=== PATIENT | male | born 1945 | race Caucasian/White ===

== ENCOUNTER 2017-10-27 09:47 | Emergency (ER) | payer BC, SELFPAY ==
[2017-10-27] VITALS (8 sets, daily range): BP systolic 113–151; BP diastolic 65–88; PULSE 74–90; RESP 13–20; TEMP 36.7; O2SAT 94–100; BMI 32.8
--- NOTE | 2017-10-27 10:06 | DI.RAD.S_ITS ---
PROCEDURE: XR CHEST 1V INDICATIONS: Chest pain TECHNIQUE: One view of the chest was acquired. COMPARISON: [facility], , CHEST 1 VIEW, 02/26/2008, 9:01. FINDINGS: Surgical changes and devices: None. Lungs and pleura: No pleural effusions or pneumothorax. Lungs are clear. Mediastinum: Mediastinal contours appear normal. Heart size is normal. Bones and chest wall: No suspicious bony lesions. Overlying soft tissues appear unremarkable. IMPRESSION: Negative chest. No acute cardiopulmonary process is evident. Dictated by: Manolo Mello M.D. on 10/27/2017 at 9:52 Approved by: Manolo Mello M.D. on 10/27/2017 at 9:54
--- NOTE | 2017-10-27 10:08 | ED.CHESTPAIN ---
HPI - Chest Pain General Chief Complaint: Chest Pain Stated Complaint: dull aching in chest Time Seen by Provider: 10/27/17 10:07 Source: patient Mode of arrival: ambulatory History of Present Illness HPI narrative: 72-year-old male here for evaluation of retrosternal chest pressure. Patient states that he woke this morning at approximately 6 o'clock and the symptoms that brought him to the emergency department today started somewhere between 6 and 630 this morning. He states that the feel very similar to the symptoms he had on Wednesday of last week which then eventually led to when he stated was a diagnosis of a ???heart attack??? patient was seen at [facility] Wednesday of last week where he reported that he had ???elevated enzymes ???he was sent to [facility] where he had cardiac catheterization and was told that he needed a ???bypass graft ???he states that at some point after that he was transferred to [facility] where he underwent a cardiac catheterization on Wednesday ( 2 days ago) where he had 2 stents placed he was discharged yesterday. Did take his morning medicines yesterday but not his evening medicine last night did not take any medicine this morning. Related Data Home Medications Medication Instructions Recorded Confirmed aspirin 81 mg PO DAILY #0 02/26/08 10/27/17 amlodipine 5 mg PO QPM 10/27/17 10/27/17 atorvastatin 80 mg PO QPM 10/27/17 10/27/17 cholecalciferol (vitamin D3) 1,000 unit PO DAILY 10/27/17 10/27/17 [Vitamin D3] clopidogrel 75 mg PO DAILY 10/27/17 10/27/17 docusate sodium 100 mg PO BID PRN 10/27/17 10/27/17 famotidine 20 mg PO DAILY 10/27/17 10/27/17 fenofibrate 160 mg PO DAILY 10/27/17 10/27/17 losartan 50 mg PO DAILY 10/27/17 10/27/17 metformin 1,000 mg PO QPM 10/27/17 10/27/17 metoprolol succinate 75 mg PO DAILY 10/27/17 10/27/17 omega 1-urg-wor-fish oil [Fish Oil] 1 cap PO QPM 10/27/17 10/27/17 phenazopyridine 200 mg PO TID PRN 10/27/17 10/27/17 ranitidine HCl 150 mg PO BEDTIME 10/27/17 10/27/17 tamsulosin 0.4 mg PO DAILY 10/27/17 10/27/17 vitamin B complex 1 cap PO DAILY 10/27/17 10/27/17 Allergies Allergy/AdvReac Type Severity Reaction Status Date / Time diphenhydramine Allergy Mild Rash Verified 10/27/17 10:02 [From Benadryl] penicillin G Allergy Mild Rash Verified 10/27/17 10:02 prednisone Allergy Unknown Verified 10/27/17 10:02 lisinopril AdvReac Severe Cough Verified 10/27/17 10:02 Review of Systems Constitutional Denies chills, Denies fever(s), Denies lethargy and Denies weakness Cardiovascular Reports chest pain (Pressure), Reports chest pain at rest, Denies chest pain with activity, Denies diaphoresis, Denies rapid heart rate, Denies pedal edema, Denies edema, Denies irregular heart rhythm, Denies leg edema, Denies lightheadedness, Denies radiating jaw, neck or arm pain, Denies palpitations, Denies dyspnea and Denies orthopnea Respiratory Denies cough and Denies dyspnea Gastrointestinal Gastrointestinal: Denies abdominal pain, Denies change in bowel habits, Denies diarrhea, Denies nausea and Denies vomiting Genitourinary Denies hematuria, Denies flank pain, Denies urinary incontinence and Denies urinary urgency Musculoskeletal Denies back pain, Denies muscle weakness, Denies numbness and Denies tingling Integumentary/Breasts Denies pruritus, Denies erythema, Denies rash and Denies wounds Neurologic Denies numbness, Denies tingling and Denies weakness Endocrine Denies palpitations Hematologic/Lymphatic Denies easy bruising [facility] Medical History Diabetes (Acute) High cholesterol (Acute) Myocardial infarct (Acute) Surgical History Stented coronary artery (Acute) Exam Const General: cooperative and well developed Nutritional Appearance: well nourished Orientation: alert, awake, oriented x3 and not confused Resp Effort & Inspection: normal respiratory effort, able to speak in complete sentences, no respiratory distress and no use of accessory muscles Auscultation: clear to auscultation bilaterally, no rales, no rhonchi and no wheezes Cardio Rate: regular rate Rhythm: regular rhythm Heart Sounds: no click, no gallops, no murmurs and no rubs Pulses: normal peripheral pulses GI Inspection: non-distended Palpation: soft, no hepatosplenomegaly, No guarding, No pulsatile mass and No tender Auscultation: normal bowel sounds Skin General: no rashes or lesions noted, No jaundice and No petechiae Neuro General: alert, oriented x3, gait normal and no focal motor deficits Cranial Nerves: CN's II-XI intact bilaterally Speech: speech normal Motor: strength 5/5 throughout Sensory Exam: no sensory deficits noted Extrem General: full ROM, no clubbing, cyanosis or edema, no pedal edema and no calf tenderness Psych Appearance: well kempt Mental Status: mental status grossly normal Attitude: cooperative Thought Content: normal Judgment: judgment good Course Orders Ordered: ED Orders 10/27/17 09:58 Complete Blood Count AUTO DIFF Stat Comprehensive Metabolic Panel Stat Lipase Stat Partial Thromboplastin Time Stat Prothrombin Time INR Stat Troponin with CK Cardiac Panel Stat 10/27/17 10:06 XR chest 1V Stat Heparin Sodium/Dextrose (Heparin Drip) 25,000 unit in 500 mls @ 22.824 mls/hr IV CONT COLLINS; Protocol Last Admin: 10/27/17 11:24 Dose: 12 units/kg/hr, 22.824 mls/hr Discontinued Medications Aspirin (Aspirin Chew) 324 mg PO NOW ONE Stop: 10/27/17 10:59 Last Admin: 10/27/17 11:11 Dose: 324 mg Clopidogrel Bisulfate (Plavix) 150 mg PO NOW ONE Stop: 10/27/17 11:17 Last Admin: 10/27/17 11:22 Dose: 150 mg Heparin Sodium (Porcine) (Heparin) 5,000 unit IV NOW ONE Stop: 10/27/17 11:17 Last Admin: 10/27/17 11:22 Dose: 5,000 unit Nitroglycerin (Nitro-Bid) 1 inch TOP NOW ONE Stop: 10/27/17 10:59 Last Admin: 10/27/17 11:11 Dose: 1 inch Last Vital Signs Temp 98.1 F 10/27/17 09:56 Pulse 74 10/27/17 11:11 Resp 19 10/27/17 11:00 BP 137/88 H 10/27/17 11:11 Pulse Ox 94 10/27/17 11:00 MDM - Chest Pain Lab Data Attestation: I reviewed the patient's lab results. Result diagrams: 10/27/17 09:58 10/27/17 09:58 Lab Results 10/27/17 10/27/17 10/27/17 Range/Units 09:58 09:58 09:58 WBC 6.9 (4.5-11.0) X10^3/uL RBC 4.76 (4.5-5.9) X10^6/uL Hgb 15.0 (13.5-17.5) g/dL Hct 42.5 (41-53) % MCV 89.2 (80-100) fL MCH 31.4 (26-34) PG MCHC 35.2 (30-36) % RDW 13.7 (11.6-14.8) % Plt Count 265 (150-400) X10^3/uL Neut % (Auto) 60.7 (50-75) % Lymph % (Auto) 24.2 L (25-40) % [place] % (Auto) 12.8 (3-14) % Eos % (Auto) 1.6 L (2-4) % Baso % (Auto) 0.7 (0-2) % Neut # (Auto) 4200 (4429-0198) /uL PT 12.5 (10.1-12.7) SECONDS INR 1.2 (0.9-1.3) APTT 35 (26.4-36.2) SECONDS Sodium 141 (137-145) mmol/L Potassium 4.3 (3.4-5.1) mmol/L Chloride 104.0 (98-107) mmol/L Carbon Dioxide 25.0 (22-32) mmol/L BUN 27.0 H (9-20) mg/dL Creatinine 1.10 (0.66-1.25) mg/dL Estimated GFR > 60.0 (>60) mL/min BUN/Creatinine Ratio 24.5 H (6-22) Glucose 137 H (80-110) mg/dL Calcium 9.8 (8.4-10.2) mg/dL Total Bilirubin 0.7 (0.2-1.3) mg/dL AST 29 (17-59) IU/L ALT 37 (21-72) IU/L Alkaline Phosphatase 45 (38-126) U/L Total Creatine Kinase 79 (55-170) U/L Troponin I 0.039 H (0.01-0.034) ng/mL Total Protein 7.7 (6.3-8.2) g/dL Albumin 4.4 (3.5-5.0) g/dL Globulin 3.3 (1.7-4.1) g/dL Albumin/Globulin Ratio 1.3 (1.0-2.8) Lipase 156 (23-300) U/L Imaging Data Chest x-ray: Radiologist's impression: PROCEDURE: XR CHEST 1V INDICATIONS: Chest pain TECHNIQUE: One view of the chest was acquired. COMPARISON: [facility], CHEST 1 VIEW, 02/26/2008, 9:01. FINDINGS: Surgical changes and devices: None. Lungs and pleura: No pleural effusions or pneumothorax. Lungs are clear. Mediastinum: Mediastinal contours appear normal. Heart size is normal. Bones and chest wall: No suspicious bony lesions. Overlying soft tissues appear unremarkable. IMPRESSION: Negative chest. No acute cardiopulmonary process is evident. Dictated by: Manolo Mello M.D. on 10/27/2017 at 9:52 ECG Data Attestation: I personally reviewed and interpreted this ECG as follows: Prior ECG tracings: not available for review Interpretation: EKG dated 27 Oct 2017 time 0957 hr Sinus rhythm Normal axis Right bundle branch block [address]-elevation in lead 1 No reciprocal changes Nonspecific ST T wave changes MDM Narrative Medical decision making narrative: Patient with a recent diagnosis per his report of a ???heart attack ???had 2 stents placed 2 days ago. Was discharged from the hospital yesterday. Did not take his Plavix yesterday evening or this morning. No ST elevation on his EKG. Does have a slightly elevated troponin however I have no prior labs to compare this to. Does have symptoms he describes are very much like his presenting symptoms 1 week ago. Patient was given an aspirin here in the emergency department. Was given Plavix. Was started on heparin drip. Discussed the case with Dr. Farias at [facility] with the cardiology service. It appears throw discussion over the phone that his EKG here in the emergency department is very similar to his prior EKGs. After this discussion with Cardiology will transfer the patient to [facility] for continued evaluation. Informed patient of the decision. He expressed understanding and agreement with plan. Patient is stable for transport Discharge Plan Departure Patient Disposition: [facility] Clinical Impression: ACS (acute coronary syndrome) Prescriptions: No Action aspirin 81 mg Tablet,Chewable 81 mg PO DAILY Qty: 0 RF: 0 losartan 50 mg tablet 50 mg PO DAILY RF: 0 metformin 500 mg tablet 1,000 mg PO QPM RF: 0 atorvastatin 80 mg Tablet 80 mg PO QPM RF: 0 phenazopyridine 200 mg Tablet 200 mg PO TID PRN (Reason: painful urination) RF: 0 docusate sodium 50 mg Capsule 100 mg PO BID PRN (Reason: Constipation) RF: 0 clopidogrel 75 mg tablet 75 mg PO DAILY RF: 0 amlodipine 5 mg Tablet 5 mg PO QPM RF: 0 famotidine 20 mg Tablet 20 mg PO DAILY RF: 0 tamsulosin 0.4 mg Capsule,Extended Release 24hr 0.4 mg PO DAILY RF: 0 metoprolol succinate 25 mg tablet extended release 24 hr 75 mg PO DAILY RF: 0 fenofibrate 160 mg tablet 160 mg PO DAILY RF: 0 omega 1-kfm-rit-fish oil [Fish Oil] 360-1,200 mg Capsule,Delayed Release(Dr/Ec) 1 cap PO QPM RF: 0 ranitidine HCl 150 mg Tablet 150 mg PO BEDTIME RF: 0 vitamin B complex Capsule 1 cap PO DAILY RF: 0 cholecalciferol (vitamin D3) [Vitamin D3] 1,000 unit Capsule 1,000 unit PO DAILY RF: 0
[2017-10-27 10:17] LABS: INR 1.2 (0.9-1.3); Prothrombin Time 12.5 SECONDS (10.1-12.7)
[2017-10-27 10:18] LABS: Add Manual Diff / Slide Review NO; Basophils Percent Auto 0.7 % (0-2); Eosinophils Percent Auto 1.6 % (2-4); Hematocrit 42.5 % (41-53); Lymphocytes Percent Auto 24.2 % (25-40); Mean Corpuscular HGB Conc 35.2 % (30-36); Mean Corpuscular Hemoglobin 31.4 PG (26-34); Mean Corpuscular Volume 89.2 fL (80-100); Monocytes Percent Auto 12.8 % (3-14); Neutrophils Absolute Auto 4200 /uL (3000-5900); Neutrophils Percent Auto 60.7 % (50-75); Platelet Count 265 X10^3/uL (150-400); Red Blood Cell Count 4.76 X10^6/uL (4.5-5.9); Red Cell Distribution Width 13.7 % (11.6-14.8); White Blood Cell Count 6.9 X10^3/uL (4.5-11.0)
[2017-10-27 10:20] LABS: PTT Partial Thromboplastin Tim 35 SECONDS (26.4-36.2)
[2017-10-27 10:25] LABS: Alanine Aminotransferase 37 IU/L (21-72); Albumin 4.4 g/dL (3.5-5.0); Albumin Globulin Ratio 1.3 (1.0-2.8); Alkaline Phosphatase 45 U/L (38-126); Aspartate Aminotransferase 29 IU/L (17-59); BUN Creatinine Ratio 24.5 (6-22); Bilirubin Total 0.7 mg/dL (0.2-1.3); Calcium 9.8 mg/dL (8.4-10.2); Creatine Kinase 79 U/L (55-170); Estimated Glomerular Filt Rate > 60.0 mL/min (>60); Globulin 3.3 g/dL (1.7-4.1); Glucose 137 mg/dL (80-110); HEMOLYSIS < 15 (0-50); Lipase 156 U/L (23-300); Potassium 4.3 mmol/L (3.4-5.1); Sodium 141 mmol/L (137-145); Total Protein 7.7 g/dL (6.3-8.2)
[2017-10-27 10:35] LABS: Troponin I 0.039 ng/mL (0.01-0.034)
[2017-10-27] MEDS: NITROGLYCERIN OINT 1 INCH/GM OINT...G. TOP (11:11)
[2017-10-27] MEDS: ASPIRIN 81 MG TAB 324 MG PO (11:11)
[2017-10-27] MEDS: CLOPIDOGREL 75 MG TABLET 150 MG PO (11:22)
[2017-10-27] MEDS: HEPARIN 5,000 UNIT/ML VIAL 5000 UNIT IV (11:22)
[2017-10-27] MEDS: HEPARIN DRIP 25,000 UNIT/500 ML IV.SOLN 22.824 UNIT IV (11:24)
[2017-10-27] MEDS: ACETAMINOPHEN 325 MG TABLET 650 MG PO (13:21)
== END 2017-10-27 13:41 | disposition short-term general hospital (02) ==
PROVIDERS: Emergency Provider Emergency Medicine
DX: I24.9 Acute ischemic heart disease, unspecified (principal)
CPT/HCPCS: 71045; 80053; 82550; 82553; 83690; 84484; 85025; 85610; 85730; 93005; 93041; 96365; 96366; 96375; 99285; J1644

== ENCOUNTER 2018-07-15 21:40 | Emergency (ER) | payer BC, SELFPAY ==
[2018-07-15 21:43] VITALS: BP 146/69; PULSE 75; RESP 16; TEMP 36.8; O2SAT 95; BMI 31.3
--- NOTE | 2018-07-15 21:54 | DI.RAD.S_ITS ---
PROCEDURE: XR CHEST 1V INDICATIONS: chest pain TECHNIQUE: One view of the chest was acquired. COMPARISON: None. FINDINGS: Surgical changes and devices: None. Lungs and pleura: Lungs are clear. No pleural effusions or pneumothorax. Mediastinum: Mediastinal contours appear normal. Heart size is normal. Bones and chest wall: No suspicious bony lesions. Overlying soft tissues appear unremarkable. IMPRESSION: No acute process. Dictated by: Farideh Rios M.D. on 07/16/2018 at 9:21 Approved by: Farideh Rios M.D. on 07/16/2018 at 9:21
[2018-07-15 22:30] VITALS: BP 131/80; PULSE 72; RESP 18; O2SAT 96
[2018-07-15 22:33] LABS: Add Manual Diff / Slide Review NO; Basophils Absolute Auto 0 /uL (0-100); Basophils Percent Auto 0.5 % (0-2); Eosinophils Absolute Auto 100 /uL (0-450); Eosinophils Percent Auto 2.8 % (2-4); Hematocrit 41.5 % (41-53); Hemoglobin 14.2 g/dL (13.5-17.5); Lymphocytes Absolute Auto 1300 /uL (1100-4500); Lymphocytes Percent Auto 25.5 % (25-40); Mean Corpuscular HGB Conc 34.2 % (30-36); Mean Corpuscular Hemoglobin 31.5 PG (26-34); Monocytes Absolute Auto 700 /uL (0-900); Monocytes Percent Auto 12.9 % (3-14); Neutrophils Absolute Auto 3000 /uL (1500-7000); Neutrophils Percent Auto 58.3 % (50-75); Platelet Count 212 X10^3/uL (150-400); Red Blood Cell Count 4.51 X10^6/uL (4.5-5.9); Red Cell Distribution Width 13.6 % (11.6-14.8); White Blood Cell Count 5.2 X10^3/uL (4.5-11.0)
[2018-07-15 22:34] LABS: Prothrombin Time 12.1 SECONDS (10.1-12.7)
[2018-07-15 22:36] LABS: PTT Partial Thromboplastin Tim 32 SECONDS (26.4-36.2)
[2018-07-15 22:38] LABS: Alanine Aminotransferase 23 IU/L (21-72); Albumin 4.2 g/dL (3.5-5.0); Albumin Globulin Ratio 1.4 (1.0-2.8); Alkaline Phosphatase 37 U/L (38-126); Aspartate Aminotransferase 24 IU/L (17-59); Bilirubin Total 0.3 mg/dL (0.2-1.3); Blood Urea Nitrogen 36 mg/dL (9-20); Calcium 9.4 mg/dL (8.4-10.2); Carbon Dioxide 25 mmol/L (22-32); Chloride 107 mmol/L (98-107); Creatine Kinase 59 U/L (55-170); Estimated Glomerular Filt Rate 59.9 mL/min (>60); Glucose 134 mg/dL (80-110); HEMOLYSIS < 15 (0-50); Lipase 106 U/L (23-300); Sodium 143 mmol/L (137-145); Total Protein 7.2 g/dL (6.3-8.2)
[2018-07-15 22:54] LABS: Troponin I < 0.012 ng/mL (0.01-0.034)
--- NOTE | 2018-07-15 23:04 | ED_ITS ---
HPI - Chest Pain General Chief Complaint: Chest Pain Stated Complaint: START IN THE BACK TO CHEST PAIN Time Seen by Provider: 07/15/18 22:02 Source: patient Mode of arrival: ambulatory Limitations: no limitations History of Present Illness HPI narrative: 72-year-old male, nonsmoker with extensive medical history including hypertension, diabetes, and hyperlipidemia presents to the emergency department with a chief complaint of back pain which radiates around his chest. He is not dizzy nor weak or lightheaded. He denies any shortness of breath. His pain is sharp and aching and he states it is out side of his chest. He denies any significant cough or other. He denies any injury. His pain is worse with palpation and motion of his right arm. He denies any hemoptysis or recent long distance travel. Yesterday his noted a small tender red patch just lateral to his spine in his midthoracic region Onset (ago): day(s) Duration: constant Pain location: right chest Severity: mild Quality: aching and sharp Pain radiation: none Exacerbating factors: palpation and movement Treatments prior to arrival chest pain: none Related Data Home Medications Medication Instructions Recorded Confirmed aspirin 81 mg PO DAILY #0 02/26/08 10/27/17 amlodipine 5 mg PO QPM 10/27/17 10/27/17 atorvastatin 80 mg PO QPM 10/27/17 10/27/17 cholecalciferol (vitamin D3) 1,000 unit PO DAILY 10/27/17 10/27/17 [Vitamin D3] clopidogrel 75 mg PO DAILY 10/27/17 10/27/17 docusate sodium 100 mg PO BID PRN 10/27/17 10/27/17 famotidine 20 mg PO DAILY 10/27/17 10/27/17 fenofibrate 160 mg PO DAILY 10/27/17 10/27/17 losartan 50 mg PO DAILY 10/27/17 10/27/17 metformin 1,000 mg PO QPM 10/27/17 10/27/17 metoprolol succinate 75 mg PO DAILY 10/27/17 10/27/17 omega 9-hya-otx-fish oil [Fish Oil] 1 cap PO QPM 10/27/17 10/27/17 phenazopyridine 200 mg PO TID PRN 10/27/17 10/27/17 ranitidine HCl 150 mg PO BEDTIME 10/27/17 10/27/17 tamsulosin 0.4 mg PO DAILY 10/27/17 10/27/17 vitamin B complex 1 cap PO DAILY 10/27/17 10/27/17 Previous Rx's Medication Instructions Recorded valacyclovir 1,000 mg PO Q8H 7 Days #21 tab 07/15/18 Allergies Allergy/AdvReac Type Severity Reaction Status Date / Time diphenhydramine Allergy Mild Rash Verified 07/15/18 21:43 [From Benadryl] penicillin G Allergy Mild Rash Verified 07/15/18 21:43 prednisone Allergy Unknown Verified 07/15/18 21:43 lisinopril AdvReac Severe Cough Verified 07/15/18 21:43 Review of Systems Constitutional Denies chills, Denies fever(s), Denies lethargy and Denies weakness Eyes Denies change in vision, Denies eye discharge, Denies irritation and Denies loss of vision ENT Ears, Nose, Mouth, and Throat: Denies change in voice, Denies neck pain and Denies sore throat Cardiovascular Reports chest pain, Denies irregular heart rhythm, Denies lightheadedness, Denies palpitations, Denies dyspnea, Denies dyspnea on exertion and Denies orthopnea Respiratory Denies cough, Denies dyspnea, Denies dyspnea on exertion and Denies wheezing Gastrointestinal Gastrointestinal: Denies abdominal pain, Denies change in bowel habits, Denies diarrhea, Denies nausea and Denies vomiting Genitourinary Denies hematuria, Denies flank pain, Denies urinary incontinence and Denies urinary urgency Musculoskeletal Denies neck pain Integumentary/Breasts Denies pruritus, Reports erythema, Denies rash, Reports skin pain, Reports skin swelling and Denies wounds Neurologic Denies confusion, Denies loss of vision and Denies weakness Psychiatric Denies anxiety, Denies confusion, Denies depression, Denies homicidal ideation and Denies suicidal ideation Endocrine Denies palpitations Hematologic/Lymphatic Denies easy bruising Allergic/Immunologic Denies wheezing PFSH Medical History Diabetes (Acute) High cholesterol (Acute) Myocardial infarct (Acute) Surgical History Stented coronary artery (Acute) Social History Smoking Status: Never smoker Social History Smoking Status: Never smoker Exam Narrative Exam Narrative: GENERAL: 72-year-old male resting comfortably, reading his tablet in no obvious distress HEAD: Atraumatic. Normocephalic. No temporal or scalp tenderness. EYES: Pupils equal round and reactive. Extraocular motions intact. No scleral icterus. No injection or drainage. ENT: Nose without bleeding, purulent drainage or septal hematoma. Throat without erythema, tonsillar hypertrophy or exudate. Uvula midline. Airway patent. NECK: Trachea midline. No JVD or lymphadenopathy. Supple, nontender, no meningeal signs. CARDIOVASCULAR: Regular rate and rhythm without murmurs, gallops, or rubs. RESPIRATORY: Clear to auscultation. Breath sounds equal bilaterally. No wheezes , rales, or rhonchi. GASTROINTESTINAL: Abdomen soft, non-tender, nondistended. No hepato-splenomegaly , or palpable masses. No guarding. EXTREMITIES: No clubbing, cyanosis, or edema. No joint tenderness, effusion, or edema noted. BACK: Nontender without deformity or crepitance. No flank tenderness. NEURO: AOx3. SKIN: Tender, tingling, erythematous patch just lateral to the midline at mid Thoracics. His pain is reproducible with palpation wrapping along a single dermatome towards his chest. Light touch produces a mild almost tingling type pain. Initial Vital Signs Initial Vital Signs: Vital Signs Temperature 98.3 F 07/15/18 21:43 Pulse Rate 75 07/15/18 21:43 Respiratory Rate 16 07/15/18 21:43 Blood Pressure 146/69 H 07/15/18 21:43 Pulse Oximetry 95 07/15/18 21:43 Course Orders Ordered: ED Orders 07/15/18 21:54 XR chest 1V Stat EKG-12 Lead Stat 07/15/18 22:08 Complete Blood Count AUTO DIFF Stat Comprehensive Metabolic Panel Stat Lipase Stat Partial Thromboplastin Time Stat Prothrombin Time INR Stat Troponin & CK Cardiac Panel Stat Vital Signs - 8 hr 07/15/18 21:43 07/15/18 22:30 Temperature 98.3 F Pulse Rate 75 72 Respiratory Rate 16 18 Blood Pressure 146/69 H Blood Pressure [Left Arm] 131/80 Pulse Oximetry 95 96 MDM - Chest Pain Differential Diagnosis Likely fracture of rib, pneumothorax and stable angina Medical Records Data Attestation: I reviewed the patient's medical records. Lab Data Attestation: I reviewed the patient's lab results. Result diagrams: 07/15/18 22:08 07/15/18 22:08 Lab Results 07/15/18 07/15/18 07/15/18 Range/Units 22:08 22:08 22:08 WBC 5.2 (4.5-11.0) X10^3/uL RBC 4.51 (4.5-5.9) X10^6/uL Hgb 14.2 (13.5-17.5) g/dL Hct 41.5 (41-53) % MCV 92.0 (80-100) fL MCH 31.5 (26-34) PG MCHC 34.2 (30-36) % RDW 13.6 (11.6-14.8) % Plt Count 212 (150-400) X10^3/uL Neut % (Auto) 58.3 (50-75) % Lymph % (Auto) 25.5 (25-40) % [place] % (Auto) 12.9 (3-14) % Eos % (Auto) 2.8 (2-4) % Baso % (Auto) 0.5 (0-2) % Neut # (Auto) 3000 (1911-0218) /uL Lymph # (Auto) 1300 (5482-9272) /uL [place] # (Auto) 700 (0-900) /uL Eos # (Auto) 100 (0-450) /uL Baso # (Auto) 0 (0-100) /uL PT 12.1 (10.1-12.7) SECONDS INR 1.0 (0.9-1.3) APTT 32 D (26.4-36.2) SECONDS Sodium 143 (137-145) mmol/L Potassium 4.0 (3.4-5.1) mmol/L Chloride 107 (98-107) mmol/L Carbon Dioxide 25 (22-32) mmol/L BUN 36 H (9-20) mg/dL Creatinine 1.20 (0.66-1.25) mg/dL Estimated GFR 59.9 L (>60) mL/min BUN/Creatinine Ratio 30.0 H (6-22) Glucose 134 H (80-110) mg/dL Calcium 9.4 (8.4-10.2) mg/dL Total Bilirubin 0.3 (0.2-1.3) mg/dL AST 24 (17-59) IU/L ALT 23 (21-72) IU/L Alkaline Phosphatase 37 L (38-126) U/L Total Creatine Kinase 59 (55-170) U/L CK-MB (CK-2) TNP CK-MB (CK-2) Rel Index TNP Troponin I < 0.012 (0.01-0.034) ng/mL Total Protein 7.2 (6.3-8.2) g/dL Albumin 4.2 (3.5-5.0) g/dL Globulin 3.0 (1.7-4.1) g/dL Albumin/Globulin Ratio 1.4 (1.0-2.8) Lipase 106 (23-300) U/L Imaging Data Chest x-ray: My impression: NAP ECG Data Attestation: I personally reviewed and interpreted this ECG as follows: Prior ECG tracings: available for review Interpretation: EKG is normal sinus rhythm rate [75 ] and free of any signs of ischemia or ectopy. No ST segmental elevation or depression. No T wave inversions. Right bundle branch block MDM Narrative Medical decision making narrative: Multiple etiologies for patient's symptoms considered including: [Ischemia, thought less likely given no change in EKG or troponin after multiple days. Nonischemic type picture with reproducible, sharp pain. Pneumothorax or pneumonia considered but thought less likely given lack of significant findings on chest x-ray or consistent history. Musculoskeletal injury considered given sharp reproducible pain of the right chest wall. Shingles considered very likely given painful rash noted and distribution of pain in a single dermatome. Furthermore pain was noted prior to the presentation of the rash] Patient's symptoms improved or duration of stay with above-stated therapies. Findings and discharge diagnosis discussed with patient/family followed by verbalization of understanding Return precautions discussed with patient/family whom verbalize understanding. Discharge Plan Departure Patient Disposition: Home Clinical Impression: Shingles Discharge Date/Time: 07/15/18 23:10 Interventions: ED Discharge Assessment Last Done: 07/15/18 23:21 Instructions: Shingles Activity Restrictions/Additional Instructions: *You have been diagnosed with [ right chest wall pain, likely shingles ] *What to do: *Take medications as directed *Follow up with your primary care provider as planned, keep your appointment. Let them know you were seen in the Emergency Department and that we ask that you be seen in follow up *Return to ER if you should have any new, worsening or concerning symptoms Prescriptions: New valacyclovir 1 gram tablet 1,000 mg PO Q8H 7 Days Qty: 21 RF: 0 No Action aspirin 81 mg Tablet,Chewable 81 mg PO DAILY Qty: 0 RF: 0 losartan 50 mg tablet 50 mg PO DAILY RF: 0 metformin 500 mg tablet 1,000 mg PO QPM RF: 0 atorvastatin 80 mg Tablet 80 mg PO QPM RF: 0 phenazopyridine 200 mg Tablet 200 mg PO TID PRN (Reason: painful urination) RF: 0 docusate sodium 50 mg Capsule 100 mg PO BID PRN (Reason: Constipation) RF: 0 clopidogrel 75 mg tablet 75 mg PO DAILY RF: 0 amlodipine 5 mg Tablet 5 mg PO QPM RF: 0 famotidine 20 mg Tablet 20 mg PO DAILY RF: 0 tamsulosin 0.4 mg Capsule,Extended Release 24hr 0.4 mg PO DAILY RF: 0 metoprolol succinate 25 mg tablet extended release 24 hr 75 mg PO DAILY RF: 0 fenofibrate 160 mg tablet 160 mg PO DAILY RF: 0 omega 2-wbn-guq-fish oil [Fish Oil] 360-1,200 mg Capsule,Delayed Release(Dr/Ec ) 1 cap PO QPM RF: 0 ranitidine HCl 150 mg Tablet 150 mg PO BEDTIME RF: 0 vitamin B complex Capsule 1 cap PO DAILY RF: 0 cholecalciferol (vitamin D3) [Vitamin D3] 1,000 unit Capsule 1,000 unit PO DAILY RF: 0
--- NOTE | 2018-07-15 23:17 | PC.NURSE ---
PT states back pain x 1 week radiating to right chest today, with back pain worse than chest pain. Pt states hx of [place] with stent placed October 2017 and states does not feel similar to that episode now. Pt has red rash to back worse to right side.
== END 2018-07-15 23:10 | disposition home or self-care (01) ==
PROVIDERS: Emergency Provider Emergency Medicine
DX: B02.9 Zoster without complications (principal); R07.89 Other chest pain
CPT/HCPCS: 36591; 71045; 80053; 82550; 83690; 84484; 85025; 85610; 85730; 93005; 99283; 99285

== ENCOUNTER → 2020-10-14 15:23 | Outpatient (CLI) | payer BC, SELFPAY ==
[2020-10-14 17:46] LABS: COVID19 -Nasal RAPID Negative (Negative)
== END ==
PROVIDERS: PCP Physician Assistant Medical; Visit Provider Student in an Organized Health Care Education/Training Program
DX: Z01.812 Encounter for preprocedural laboratory examination (principal); Z20.822 Contact with and (suspected) exposure to COVID-19
CPT/HCPCS: 87635

== ENCOUNTER 2020-10-15 12:57 | Outpatient (CLI) | payer BC, SELFPAY ==
[2020-10-15] VITALS (10 sets, daily range): BP systolic 128–166; BP diastolic 62–78; PULSE 62–75; RESP 12–19; TEMP 37.1; O2SAT 93–96
--- NOTE | 2020-10-15 13:52 | DI.RAD.S_ITS ---
PROCEDURE: PAIN L/S TRANSFORAMINAL INJECT INDICATIONS: SPONDYLOSIS COMPARISON: [facility], RG, XR L-SPINE 4-6V, 02/29/2020, 12:31. FINDINGS: Fluoroscopic spot filming was performed to verify placement of a spinal needle at the L4-L5 level, as labeled on the films. Appropriate location of the needle tip was confirmed by injection of iodinated contrast. IMPRESSION: Intraprocedural examination within normal limits. Dictated by: Jensen Resendiz M.D. on 10/15/2020 at 14:54 Approved by: Jensen Resendiz M.D. on 10/15/2020 at 14:54
[2020-10-15] MEDS: fentaNYL 100 MCG/2 ML INJ 50 MCG IV (14:06)
[2020-10-15] MEDS: MIDAZOLAM 5 MG/5 ML VIAL IV (14:06)
[2020-10-15] MEDS: BUPIVACAINE 0.25% (PF) VIAL 2 ML INJ (14:11)
[2020-10-15] MEDS: BETAMETHASONE 30 MG/5 ML MDV 6 MG INJ (14:11)
[2020-10-15] MEDS: IOPAMIDOL 15 ML VIAL 3 ML INJ (14:12)
[2020-10-15] MEDS: DEXAMETHASONE 10 MG/ML VIAL 20 MG INJ (14:12)
--- NOTE | 2020-10-15 14:23 | P.PCN_ITS ---
Date/Time/Diagnoses Date of procedure: 10/15/20 Time of procedure: 14:23 Pre-procedure diagnosis: 1. FORAMINAL STENOSIS WITH LE SYMPTOMS Post-procedure diagnosis: same Procedure Notes Procedure: 1. FLUOROSCOPICALLY GUIDED CONTRAST CONTROLLED TRANSFORAMINAL EPIDURAL STEROID INJECTION - RIGHT L4/5 TFESI Indications: Carlos is referred by KORY Laboy for treatment of Foraminal Stenosis with Right LE Symptoms Physician: Jai Wilkinson Total Fluoroscopy time (seconds): 14 Total sedation minutes: 10 Complications: none Procedure in detail & Post-procedure care: FINDINGS Foraminal Nerve Root Compression secondary to disc disease and facet hypertrophy DESCRIPTION OF PROCEDURE Following review of allergy and review of potential side effects and complications, including, but not necessarily limited to, infection, allergic reaction, local tissue breakdown, stroke, temporary or permanent nerve injury, paralysis, and possible , the patient indicated that the patient understood and agreed to proceed. An informed consent document was signed by the patient, witnessed by a nurse, and placed in the patient's chart. Additionally, other treatment options including medications, modalities, and physical therapy were reviewed with the patient. After review of previous anaesthesic history and IV conscious sedation the patient was deemed safe to proceed with today?s procedure with IV conscious sedation as ASA class II designation. Safety time-out was performed to confirm patient ID, procedure to be performed and site of procedure. IV sedation was accomplished with a combination of 2mg of Versed and 50mcg of Fentanyl was administered by the RN after DO order, titrated to patient comfort during the course of the procedure while the patient remained responsive to all verbal co mmands In the prone position following sterile prep and drape of the lumbar region, the right L4/5 posterior neuroforamen was identified fluoroscopically. The skin was anesthetized via a 25-gauge 1.5-inch needle with 1% lidocaine solution. At this point, a 25-gauge 3.5-inch spinal needle was atraumatically introduced and advanced under fluoroscopic guidance through the posterior right L4/5 n euroforamen to approximately the anterior aspect of the canal. Depth was confirmed on lateral view. Following negative aspiration, injection of approximately 1.5cc of Isovue 200 under live fluoroscopy in the AP view confirmed excellent flow along the nerve root, into the epidural space without vascular or intrathecal uptake observed Radiological data, including multiple fluoroscopic views of the lumbosacral spine, reveal a spinal needle at the right L4/5 posterior neuroforamen. Subsequent views show flow of contrast material flowing superiorly and inferiorly along the nerve root confirming epidural flow. Subsequently, a test dose of 1.5 cc of 1% lidocaine solution was administered and patient was observed for two minutes for signs or symptoms of complications, including abdominal pain, shortness of breath, bilateral upper or lower extremity weakness, nausea and vomiting, prior to steroid injection. At this point, a total of 3cc or 20mg of dexamethasone and 6mg of betamethasone was injected without incident. The procedure tolerated the procedure well without signs or symptoms of complications prior to transfer to the recovery area continued monitoring without incident. The patient was then transferred to the recovery area where they were observed for an appropriate time after the injection. The patient reported a VAS score of 7 prior to the procedure and a post-p rocedure VAS of 0. POST OP INSTRUCTIONS The patient was provided a Pain Log to continue to record their response to the target-specific procedure prior to follow-up visit with their referring physician. Additionally, specific post-injection care instructions and a contact number to our office were provided if concerns arise regarding possible complications associated with the procedure are suspected.
--- NOTE | 2020-10-15 16:41 | PC.NURSE ---
Pt arrived very drowsy from procedure room. Attempted to stand patient at 1430/1445/1510- each time pt was bertin to stand on his own, march in step but stating he was very dizzy and felt light headed. Difficult for patient to remain awake. Stated he is this drowsy each afternoon at this time due to a medication he is on. The thing that is not normal is to have dizziness and feel light headed Pt occassionally pale and diaphoretic. No one at home this evening to monitor patient. Encourage him to just relax and take his time here for recovery. Pt easily falling asleep. Improved balance and ability to march in place by 1530. Pt awake more, holding full conversations. Dr Wilkinson at chair to assess at 1538- ok'd to DC. Pt's neetu Sanchez agreed verbally via phone to help pt get into home nad chair safely once home. DC/d at 1540
== END 2020-10-15 15:40 | disposition home or self-care (01) ==
LOC: RAD 13:06
PROVIDERS: PCP Physician Assistant Medical; Referring Provider Physical Medicine & Rehabilitation; Visit Provider Physical Medicine & Rehabilitation
DX: M48.061 Spinal stenosis, lumbar region without neurogenic claudication (principal); M51.16 Intervertebral disc disorders with radiculopathy, lumbar region
CPT/HCPCS: 64483; 99152; J0702; J1100; J2250; J3010

== ENCOUNTER → 2020-12-09 13:40 | Outpatient (CLI) | payer BC, SELFPAY ==
--- NOTE | 2020-12-09 14:24 | DI.RAD.S_ITS ---
PROCEDURE: XR HIP W PEL IF DONE [place] MIN 4V INDICATIONS: right hip djd TECHNIQUE: AP pelvis with lateral view(s) of the bilateral hip(s). COMPARISON: None. FINDINGS: Bones: No fractures or dislocations. Moderate right worse than left bilateral hip joint osteoarthritic changes are seen. No evidence of avascular necrosis of femoral head. Pelvic ring appears intact. No suspicious bony lesions. Soft tissues: The visualized bowel gas pattern is normal. No suspicious soft tissue calcifications. IMPRESSION: Moderate right worse than left bilateral hip joint osteoarthritis. No fracture or dislocation. No evidence of avascular necrosis. Dictated by: Hermelindo Farley M.D. on 12/09/2020 at 15:00 Approved by: Hermelindo Farley M.D. on 12/09/2020 at 15:00
== END ==
PROVIDERS: PCP Physician Assistant Medical; Referring Provider Physical Medicine & Rehabilitation; Visit Provider Physical Medicine & Rehabilitation
DX: M16.0 Bilateral primary osteoarthritis of hip (principal)
CPT/HCPCS: 73522

== ENCOUNTER → 2021-02-05 10:46 | Outpatient (CLI) | payer BC, SELFPAY ==
--- NOTE | 2021-02-05 10:48 | DI.RAD.S_ITS ---
PROCEDURE: XR THORACIC SPINE 3V INDICATIONS: progressive neck and thoracic pain TECHNIQUE: 3 views of the thoracic spine were acquired. COMPARISON: [facility], CR, XR CERVICAL SPINE 4V OR 5V, 02/05/2021, 10:44. [facility], CR, XR CHEST 1V, 07/15/2018, 21:58. [facility] [place], [place], XR LUMBAR SPINE 2 OR 3 VIEWS, 06/08/2019, 11:48. FINDINGS: Bones: No fractures or dislocations. No suspicious bony lesions. 12 pairs of ribs are noted, and appear intact where visualized. Soft tissues: No paravertebral stripe thickening. IMPRESSION: Mild degenerative disc disease along the thoracic spine. Several of the mid thoracic vertebral bodies have endplate curvatures that would suggest a slight degree of compression fracture, chronicity uncertain. However, the minimal degree of this morphology can be seen as a normal anatomic. MR scanning may be warranted for more accurate assessment. Dictated by: Sterling Nguyễn M.D. on 02/05/2021 at 11:06 Approved by: Sterling Nguyễn M.D. on 02/05/2021 at 11:08
--- NOTE | 2021-02-05 10:48 | DI.RAD.S_ITS ---
PROCEDURE: XR CERVICAL SPINE 4V OR 5V INDICATIONS: progressive neck and thoracic pain TECHNIQUE: 5 views of the cervical spine acquired. COMPARISON: [facility], CR, XR THORACIC SPINE 3V, 02/05/2021, 10:44. FINDINGS: Bones: No fractures or dislocations to the T1 level. Oblique images demonstrate no bony foraminal stenoses. Soft tissues: No prevertebral soft tissue swelling. IMPRESSION: A mild degree of degenerative disc disease is seen at C5-6 and C6-7 as indicated by slight disc height reduction but no fracture or subluxation is seen. Dictated by: Sterling Nguyễn M.D. on 02/05/2021 at 11:10 Approved by: Sterling Nguyễn M.D. on 02/05/2021 at 11:10
== END ==
PROVIDERS: PCP Physician Assistant Medical; Referring Provider Physical Medicine & Rehabilitation; Visit Provider Physical Medicine & Rehabilitation
DX: M47.812 Spondylosis without myelopathy or radiculopathy, cervical region (principal); M47.814 Spondylosis without myelopathy or radiculopathy, thoracic region; M51.34 Other intervertebral disc degeneration, thoracic region; M50.322 Other cervical disc degeneration at C5-C6 level
CPT/HCPCS: 72050; 72072

== ENCOUNTER 2021-10-22 21:20 | Emergency (ER) | payer BC, SELFPAY ==
[2021-10-22 21:49] VITALS: BP 162/90; PULSE 90; RESP 18; TEMP 36.6; O2SAT 99; BMI 36.0
[2021-10-22 22:15] LABS: Appearance Urine UA CLEAR; Bilirubin Urine UA NEGATIVE (NEGATIVE); Color Urine UA YELLOW; Glucose Urine UA NEGATIVE (Negative); Ketones Urine UA NEGATIVE (NEGATIVE); Leukocyte Esterase Urine UA TRACE (NEGATIVE); Nitrite Urine UA NEGATIVE (Negative); Occult Blood Urine UA 3+ (Negative); Protein Urine UA NEGATIVE (Negative); Specific Gravity Urine UA 1.015 (1.000-1.035); Urobilinogen Urine UA 0.2 E.U./dL (0.2)
[2021-10-22 23:05] LABS: RBC Urine 10-30/HPF (0-5/HPF); Sperm Urine FEW SPERM; WBC Urine 0-1/HPF (0-5/HPF)
[2021-10-22 23:08] LABS: Bacteria Urine None Seen; Culture Indicated Urine Specimen Cultured
--- NOTE | 2021-10-23 01:46 | ED.MALEGU ---
HPI - Male Genitourinary General Chief complaint: Urogenital-Male Stated complaint: blood in urine Time Seen by Provider: 10/23/21 01:46 Source: patient Mode of arrival: Ambulatory Limitations: no limitations History of Present Illness HPI Narrative: This is a 76-year-old male comes in with complaint of bilateral flank pain, hematuria that started today patient states no fevers but he felt chilled earlier. He denies chest pain or shortness of breath. He denies any nausea or vomiting. He denies any diarrhea constipation he states he started with some tightness in his back. He states he started having blood in his urine and had very painful urination. He thought he maybe passed a kidney stone as the pain improved but he still has some back discomfort and is bilateral. He denies any penile discharge. Patient denies any testicular pain. He is on aspirin daily, he is on medications for prior heart attack and diabetes, hypertension and dyslipidemia. He has not had any issues with his prostate or prior surgeries. Patient's father did have renal cancer in his later years. Related Data Home Medications Medication Instructions Recorded Confirmed aspirin 81 mg chewable tablet 81 mg PO DAILY #0 02/26/08 04/28/21 atorvastatin 80 mg tablet 80 mg PO QPM 10/27/17 04/28/21 cholecalciferol (vitamin D3) 25 1,000 unit PO DAILY 10/27/17 04/28/21 mcg (1,000 unit) capsule (Vitamin D3) fenofibrate 160 mg tablet 160 mg PO DAILY 10/27/17 04/28/21 losartan 50 mg tablet 50 mg PO DAILY 10/27/17 04/28/21 metformin 500 mg tablet 1,000 mg PO QPM 10/27/17 04/28/21 metoprolol succinate 25 mg 75 mg PO DAILY 10/27/17 04/28/21 tablet,extended release 24 hr omega-3 360 kp-wsf-ofs-fish oil 1 cap PO QPM 10/27/17 04/28/21 1,200 mg capsule,delayed release (Fish Oil) vitamin B complex 1 cap PO DAILY 10/27/17 04/28/21 glimepiride 2 mg tablet 2 mg PO DAILY 09/23/20 04/28/21 tizanidine 4 mg capsule 4 mg PO TID PRN 03/17/21 04/28/21 Previous Rx's Medication Instructions Recorded gabapentin 600 mg tablet 600 mg PO .COMPLEX #270 tab 01/08/21 celecoxib 200 mg capsule (Celebrex) 200 mg PO DAILY #90 cap 04/28/21 nitrofurantoin 100 mg PO BID #14 cap 10/23/21 monohydrate/macrocrystals 100 mg capsule (Macrobid) Allergies Allergy/AdvReac Type Severity Reaction Status Date / Time diphenhydramine Allergy Mild Rash Verified 10/22/21 21:51 [From Benadryl] penicillin G Allergy Mild Rash Verified 10/22/21 21:51 lisinopril AdvReac Severe Cough Verified 10/22/21 21:51 Review of Systems Review of Systems ROS Unobtainable: All systems reviewed & are unremarkable except as noted in HPI and below Patient History Medical History Cervical spondylosis Degenerative joint disease of right hip Diabetes DJD (degenerative joint disease), thoracic Facet arthropathy, lumbar Herniated nucleus pulposus, L4-5 High cholesterol Lumbar radiculopathy Morbid obesity due to excess calories Myocardial infarct Surgical History History of cataract removal with insertion of prosthetic lens Stented coronary artery Family History Sister Cancer Social History Smoking Status: Never smoker Smoking Status: Never smoker alcohol intake frequency: other Substance Use Type: does not use Exam Narrative Exam Narrative: GENERAL: Alert and oriented x three, elderly male in mild distress. HEENT: Head normocephalic, atraumatic, EOMI, pupils reactive, face symmetric, moist mucous membranes NECK: Supple, full range of motion CARDIOVASCULAR: Regular rate and rhythm without murmurs, rubs or gallops. RESPIRATORY: Breath sounds equal bilaterally, no wheezes rales or rhonchi. ABDOMEN: Soft, nontender. Normoactive bowel sounds all 4 quadrants. No guarding or rebound, rigidity, no mass : No CVA tenderness EXTREMITIES: Normal range of motion, no clubbing or edema. Neurovascularly intact NEUROLOGICAL: Cranial nerves II through XII grossly intact. Moving all extremities SKIN: Warm, dry, no petechiae, no rashes or lesions. Initial Vital Signs Initial Vital Signs: Vital Signs Temperature 98 F 10/22/21 21:49 Pulse Rate 90 10/22/21 21:49 Respiratory Rate 18 10/22/21 21:49 Blood Pressure 162/90 H 10/22/21 21:49 Pulse Oximetry 99 10/22/21 21:49 Course Orders Ordered: Discontinued Medications Nitrofurantoin Macrocrystals (Nitrofurantoin Er 100 Mg Capsule) 100 mg PO NOW ONE Stop: 10/23/21 02:11 Last Admin: 10/23/21 02:23 Dose: 100 mg Documented by: [email or web address] Vital Signs Vital signs: Vital Signs - 8 hr 10/22/21 21:49 Temperature 98 F Pulse Rate 90 Respiratory Rate 18 Blood Pressure 162/90 H Pulse Oximetry 99 MDM - Male Genitourinary Lab Data Labs: Lab Results 10/22/21 Range/Units 21:50 Urine Color Yellow Urine Appearance Clear Urine pH 7.0 (4.5-8.0) Ur Specific [place] 1.015 (1.000-1.035) Urine Protein Negative (Negative) Urine Glucose (UA) Negative (Negative) g/dL Urine Ketones Negative (NEGATIVE) Urine Occult Blood 3+ H (Negative) Urine Nitrate Negative (Negative) Urine Bilirubin Negative (NEGATIVE) Urine Urobilinogen 0.2 (0.2) E.U./dL Ur Leukocyte Esterase Trace H (NEGATIVE) Urine RBC 10-30/hpf H (0-5/HPF) Urine WBC 0-1/hpf (0-5/HPF) Urine Bacteria None seen (None) Urine Sperm Few sperm Ur Culture Indicated? Specimen cultured [facility] Narrative Medical decision making narrative: This is a 76-year-old male with hematuria, bilateral flank pain which is improved and some dysuria. Patient's urine shows blood it does show leukocyte esterase patient may have UTI seems more likely than renal stone as patient does not have unilateral flank pain. His pain has improved. He has had a decrease in his hematuria. Discussed with patient at this time plan to cover with antibiotic, have his urine rechecked in the next 1-2 weeks and make sure he does not have any microscopic hematuria. If he does he will need to have further evaluation with labs and imaging as an outpatient which he is understandable with and agreeable with. We also discussed return precautions. All questions answered. Discharge Plan Departure Patient Disposition: Home Clinical Impression: Acute UTI, Hematuria Instructions: DI for Urinary Tract Infection (UTI) Activity Restrictions/Additional Instructions: Follow-up with your physician for recheck, even if your symptoms completely resolved you need to have your urine rechecked in 1-2 weeks to make sure all hematuria has resolved. If there is still hematuria present her physician will wish to evaluate you more closely with imaging and lab work evaluate for the source. Your urine today shows signs consistent with infection. This can cause irritation and bleeding with urination. Take antibiotics until completely gone. Prescription sent to [facility] in [place]. Please return for fevers, rapidly worsening abdominal, back or flank pain, persistent vomiting, inability to urinate, black or bloody stools, passing out or other new or concerning symptoms. Prescriptions: New nitrofurantoin monohyd/m-cryst [Macrobid] 100 mg capsule 100 mg PO BID Qty: 14 0RF Rx Instructions: must administer with a meal/food No Action aspirin 81 mg Tablet,Chewable 81 mg PO DAILY Qty: 0 0RF losartan 50 mg tablet 50 mg PO DAILY 0RF metformin 500 mg tablet 1,000 mg PO QPM 0RF Label Comments: do not take 15 or 16 have lab done 16 atorvastatin 80 mg Tablet 80 mg PO QPM 0RF Label Comments: patient states does not have this medication (was on simvastatin) metoprolol succinate 25 mg tablet extended release 24 hr 75 mg PO DAILY 0RF Label Comments: patient has not received this medication from pharmacy yet fenofibrate 160 mg tablet 160 mg PO DAILY 0RF Label Comments: takes all meds in the evening omega 1-lat-vlq-fish oil [Fish Oil] 360-1,200 mg Capsule,Delayed Release(Dr/Ec) 1 cap PO QPM 0RF vitamin B complex Capsule 1 cap PO DAILY 0RF cholecalciferol (vitamin D3) [Vitamin D3] 1,000 unit Capsule 1,000 unit PO DAILY 0RF glimepiride 2 mg tablet 2 mg PO DAILY 0RF gabapentin 600 mg tablet 600 mg PO .COMPLEX Qty: 270 2RF Rx Instructions: 600 mg PO 1-2 PO Tid to begin at HS and titrate to nerve pain relief; tizanidine 4 mg capsule 4 mg PO TID PRN0RF celecoxib [Celebrex] 200 mg capsule 200 mg PO DAILY Qty: 90 2RF Referrals: Jessica Laboy PA-C [Primary Care Provider] -
[2021-10-23] MEDS: NITROFURANTOIN ER 100 MG CAPSULE PO (02:23)
[2021-10-23 02:31] VITALS: BP 144/89; PULSE 89; RESP 19; O2SAT 97
== END 2021-10-23 02:34 | disposition home or self-care (01) ==
PROVIDERS: Emergency Provider Emergency Medicine; PCP Physician Assistant Medical
DX: N39.0 Urinary tract infection, site not specified (principal); R31.9 Hematuria, unspecified; R10.9 Unspecified abdominal pain
CPT/HCPCS: 81001; 87086; 99283

== ENCOUNTER 2022-01-12 21:09 | Emergency (ER) | payer BC, SELFPAY ==
[2022-01-12 21:30] VITALS: BP 185/80; PULSE 82; RESP 16; TEMP 36.4; O2SAT 97; BMI 36.3
[2022-01-12 23:21] LABS: Bacteria Urine None Seen; RBC Urine 1-5/HPF (0-5/HPF); Squamous Epithelial Cell Urine 0-1 /HPF (0-5/HPF); WBC Urine None Seen (0-5/HPF)
[2022-01-12 23:54] VITALS: O2SAT 96
[2022-01-12 23:55] VITALS: BP 170/80; PULSE 81; O2SAT 96
--- NOTE | 2022-01-12 23:58 | ED.MALEGU ---
HPI - Male Genitourinary General Chief complaint: Urogenital-Male Stated complaint: HX of UTI, recurring Time Seen by Provider: 01/12/22 23:58 Source: patient Mode of arrival: Ambulatory History of Present Illness HPI Narrative: 76-year-old male nonsmoker with history of prior UTIs presents for evaluation of a few days of dysuria and urgency as well as hematuria which is now significantly improved. He is not dizzy nor weak or lightheaded. He denies any fever or chills. He is had no chest pain or shortness of breath and denies abdominal pain. He denies any change in bowel habits such as constipation or diarrhea. He denies any significant flank pain and is concerned the may have another urine infection though he states that this is slightly different in the way it is felt. Related Data Home Medications Medication Instructions Recorded Confirmed aspirin 81 mg chewable tablet 81 mg PO DAILY ##0 02/26/08 04/28/21 atorvastatin 80 mg tablet 80 mg PO QPM 10/27/17 04/28/21 cholecalciferol (vitamin D3) 25 1,000 unit PO DAILY 10/27/17 04/28/21 mcg (1,000 unit) capsule (Vitamin D3) fenofibrate 160 mg tablet 160 mg PO DAILY 10/27/17 04/28/21 losartan 50 mg tablet 50 mg PO DAILY 10/27/17 04/28/21 metformin 500 mg tablet 1,000 mg PO QPM 10/27/17 04/28/21 omega-3 360 bs-fys-hvk-fish oil 1 cap PO QPM 10/27/17 04/28/21 1,200 mg capsule,delayed release (Fish Oil) glimepiride 2 mg tablet 2 mg PO DAILY 09/23/20 04/28/21 acetaminophen 500 mg capsule 1,000 mg PO .qd PRN 12/24/21 12/24/21 gabapentin 300 mg capsule 600 mg PO TID 12/24/21 12/24/21 Previous Rx's Medication Instructions Recorded celecoxib 200 mg capsule (Celebrex) 200 mg PO DAILY #90 caps 04/28/21 Allergies Allergy/AdvReac Type Severity Reaction Status Date / Time diphenhydramine Allergy Mild Rash Verified 12/24/21 16:17 [From Benadryl] penicillin G Allergy Mild Rash Verified 12/24/21 16:17 lisinopril AdvReac Severe Cough Verified 12/24/21 16:17 Review of Systems Review of Systems Narrative: GENERAL: Denies chills, fatigue, malaise, fever, sweats. HEENT: Denies sinus pain, ear pain, sore throat, difficulty swallowing, dizziness. RESPIRATORY: Denies dyspnea, cough, wheezing, hemoptysis, sputum. CARDIOVASCULAR: Denies chest pain, palpitations, orthopnea, edema, GASTROINTESTINAL: Denies nausea, vomiting, abdominal pain, diarrhea, constipation, melena. : See HPI MUSCULOSKELETAL: denies weakness, joint pain, or bony pain SKIN: Denies rash, skin lesions, or other NEUROLOGIC: Denies weakness, headache, numbness, change in speech, confusion, seizures, incoordination. PSYCHIATRIC: No concerning psychosocial issues. 12 point review of systems is negative except for those stated above Patient History Medical History Cervical spondylosis Degenerative joint disease of right hip Diabetes DJD (degenerative joint disease), thoracic Facet arthropathy, lumbar Herniated nucleus pulposus, L4-5 High cholesterol Lumbar radiculopathy Morbid obesity due to excess calories Myocardial infarct Surgical History History of cataract removal with insertion of prosthetic lens Stented coronary artery Family History Sister Cancer Social History Smoking Status: Never smoker Smoking Status: Never smoker alcohol intake frequency: other Substance Use Type: does not use Exam Narrative Exam Narrative: GENERAL: [76] year old patient appears stated age. Well-developed patient, in mild distress. HEAD: Atraumatic. Normocephalic. EYES: Pupils equal round and reactive. Extraocular motions intact. No scleral icterus. No injection or drainage. ENT: Nose without bleeding, purulent drainage. Throat without erythema, tonsillar hypertrophy or exudate. Airway patent. NECK: Trachea midline. Non tender CARDIOVASCULAR: Regular rate and rhythm without murmurs, gallops, or rubs. RESPIRATORY: Clear to auscultation. Breath sounds equal bilaterally. No wheezes, rales, or rhonchi. GASTROINTESTINAL: Abdomen soft, non-tender, nondistended. EXTREMITIES: No edema or joint tenderness. BACK: Nontender without deformity or crepitance. No flank tenderness. NEURO: AOx3. SKIN: No rash or erythema of visible areas Initial Vital Signs Initial Vital Signs: Vital Signs Temperature 97.5 F L 01/12/22 21:30 Pulse Rate 82 01/12/22 21:30 Respiratory Rate 16 01/12/22 21:30 Blood Pressure 185/80 H 01/12/22 21:30 Pulse Oximetry 97 01/12/22 21:30 Oxygen Delivery Method 01/12/22 21:30 Course Orders Ordered: ED Orders 01/12/22 22:40 Urine Culture Stat Urine Microscopic Stat 01/13/22 00:10 CT kidney ureter bladder (KUB) Stat 01/13/22 00:20 CBC Auto Diff [Complete Blood Count AUTO DIFF] Stat CMP [Comprehensive Metabolic Panel] Stat Vital Signs Vital signs: Vital Signs - 8 hr 01/12/22 21:30 01/12/22 23:54 01/12/22 23:55 Temperature 97.5 F L Pulse Rate 82 81 Respiratory Rate 16 Blood Pressure 185/80 H Pulse Oximetry 97 96 96 Oxygen Delivery Method Room Air 01/12/22 23:55 Temperature Pulse Rate Respiratory Rate Blood Pressure 170/80 H Pulse Oximetry Oxygen Delivery Method MDM - Male Genitourinary Lab Data Result diagrams: 01/13/22 00:20 01/13/22 00:20 Labs: Lab Results 01/12/22 01/13/22 Range/Units 22:40 00:20 WBC 6.9 (4.5-11.0) X10^3/uL RBC 4.38 L (4.5-5.9) X10^6/uL Hgb 11.8 L (13.5-17.5) g/dL Hct 35.9 L (41-53) % MCV 81.8 (80-100) fL MCH 26.9 (26-34) PG MCHC 32.9 (30-36) % RDW 15.1 H (11.6-14.8) % Plt Count 244 (150-400) X10^3/uL Neut % (Auto) 62.5 (50-75) % Lymph % (Auto) 23.6 L (25-40) % [place] % (Auto) 10.7 (3-14) % Eos % (Auto) 2.7 (2-4) % Baso % (Auto) 0.5 (0-2) % Neut # (Auto) 4300 (7863-0256) /uL Lymph # (Auto) 1600 (0663-9215) /uL [place] # (Auto) 700 (0-900) /uL Eos # (Auto) 200 (0-450) /uL Baso # (Auto) 0 (0-100) /uL Urine RBC 1-5/hpf D (0-5/HPF) Urine WBC None seen (0-5/HPF) Ur Squamous Epith Cells 0-1 /hpf (0-5/HPF) Urine Bacteria None seen (None) Ur Culture Indicated? Culture not indicate Micro UA Comment * Urine Dip Bedside Urine Glucose 100 mg/dl Bedside Urine Bilirubin - Negative Bedside Urine Ketone - Negative Urine Specific Andrews 1.015 Bedside Urine Occult Blood +++ Bedside Urine pH 6.5 Bedside Urine Protein - Negative Bedside Urine Urobilinogen - Negative Bedside Urine Nitrite - Negative Bedside Urine Leukocytes - Negative Esterase Imaging Data CT scan - abdomen/pelvis: Radiologist's Impression: [place] [address] CT Scan Report Signed Patient: Carlos Arriaga MR#: [id number] : 1945 Acct:[id number] Age/Sex: 76 / M Date of Service: 01/13/22 Loc: Accession Number: [id number] ?? Procedure: CT kidney ureter bladder (KUB) Ordering Provider: Ozzie Manzano D.O. PROCEDURE:? CT KIDNEY URETER BLADDER (KUB) ? INDICATIONS:? hematuria ? TECHNIQUE:? Axial sections were acquired from the lung bases to the pubic symphysis.? Coronal and sagittal reformats were performed.? For radiation dose reduction, the following was used: ?automated exposure control, adjustment of mA and/or kV according to patient size.? ? COMPARISON:? None. ? FINDINGS:? Image quality:? Excellent.? ? Lung bases:? There is atelectasis and scarring in the lung bases.? In the left lower lobe, there is a peripheral pulmonary nodule measuring up to 0.6 cm on series 3, image 6. A smaller 0.3 cm nodule is also demonstrated in the left lower lobe on series 3, image 2. In the Heart:? Heart is normal in size. ? URINARY: Right Kidney and Ureter: ? No hydronephrosis.? There is a suspected punctate nonobstructing right renal stone.? No hydroureter.? ? Left Kidney and Ureter: ? No stones or hydronephrosis.? There is an exophytic hyperdense oval lesion extending posteriorly from the inferior pole of the left kidney measuring up to 1.7 cm suggestive of a hemorrhagic cyst.? A smaller exophytic cyst is also demonstrated in the superior pole.? No hydroureter. ? Bladder:? Normal wall thickness. No stones. ? ? ? ABDOMEN: Liver:? Noncontrast evaluation of the liver demonstrates a lobulated cyst medially in the right hepatic lobe. Gallbladder:? Within normal limits without calcified gallstones.? ? Biliary ducts:? No biliary ductal dilatation.? ? Pancreas:? Unremarkable.? ? Spleen:? Normal in size.? ? Adrenal Glands:? No adrenal nodules.? ? ? Stomach and Bowel:? Stomach, small bowel loops, and colon are normal in caliber and wall thickness.? The appendix is not discretely visualized and likely surgically absent.? No pericecal inflammatory changes.? There is colonic diverticulosis without acute diverticulitis.? Peritoneum:? No abnormal intraperitoneal fluid.? No free air.? ? Ventral Wall: ? No hernia.? Abdominal Nodes:? No retroperitoneal or mesenteric adenopathy by size criteria.? Vessels:? Aorta and inferior vena cava are normal in size.? ? PELVIS: Pelvic Organs:? Unremarkable.? ? Pelvic Nodes: No enlarged lymph nodes.? Miscellaneous: No inguinal hernias identified. ? ? ? Bones:? Visualized osseous structures demonstrate no suspicious focal lesions. IMPRESSION:? ? 1. No evidence of obstructive uropathy. ? 2. Suspected punctate nonobstructing right renal stone. ? 3. Hyperdense exophytic lesion extending posteriorly from the left kidney likely represents a hemorrhagic cyst, but the differential includes a renal mass.? Recommend follow-up evaluation with a nonemergent renal ultrasound.? ? ? Dictated by: Marvel Rodriguez M.D. on 01/13/2022 at 0:40 ? ? Approved by: Marvel Rodriguez M.D. on 01/13/2022 at 0:46 ? MDM Narrative Medical decision making narrative: Patient with a few days of painless hematuria which is now greatly improved and, patient states he is no longer bleeding. At no point did he have fever or pain. He does not take blood thinners. There is no evidence of infection in the urine, labs demonstrate a slight decrease in his baseline hemoglobin but there is no ongoing significant bleeding. He is hemodynamically stable, has no pain, evidence of sepsis, nor dizziness or lightheadedness. Imaging would suggest further evaluation is needed and the possibility of renal mass. This information is relayed to the patient, importance of close follow-up is well understood. Return precautions discussed and questions answered to his apparent satisfaction Discharge Plan Departure Patient Disposition: Home Clinical Impression: Painless hematuria Instructions: DI for Hematuria Activity Restrictions/Additional Instructions: *You have been diagnosed with [painless hematuria. Your history and physical exam as well as labs are very reassuring and there is no evidence of infection. A CT scan suggests there may be a kidney stone in your right kidney but also identifies a dense lesion in your left kidney that will require further workup, they include hemorrhagic cyst and also renal mass on the differential. It is recommended that there is follow up with a nonemergent renal ultrasound which your doctor, or urology, can help you obtain] *What to do: *Please continue to take your regular medications as directed. [ ] New medication prescriptions sent to your pharmacy: [ ] [ ] New medication written as a paper prescription [x ] No new medications given *Please follow up with your primary care provider in 2-3 days, call for an appointment. Let them know you were seen in the Emergency Department and that we ask that you be seen in follow up. We will electronically transmit a record of today's note if your PCP is in our system *If you do not have a primary care provider please contact the [facility] Resource line at [phone]. They will ask some questions about your medical history and help get you set up with a doctor in the community. * as stated, I have also included the contact information for our Urology group, please call tomorrow and let them know that you were seen and evaluated in the emergency department and we would like you seen in follow-up. *Return to Emergency Department if you should have any new, worsening or concerning symptoms, such as [fever greater than 101 F, shaking chills, worsening pain, persistent vomiting or other bothersome symptoms] Prescriptions: No Action aspirin 81 mg Tablet,Chewable 81 mg PO DAILY Qty: 0 losartan 50 mg tablet 50 mg PO DAILY metformin 500 mg tablet 1,000 mg PO QPM Label Comments: do not take 10/26 or have lab done 10/27 atorvastatin 80 mg Tablet 80 mg PO QPM Label Comments: patient states does not have this medication (was on simvastatin) fenofibrate 160 mg tablet 160 mg PO DAILY Label Comments: takes all meds in the evening omega 0-mjr-hnr-fish oil [Fish Oil] 360-1,200 mg Capsule,Delayed Release(Dr/Ec) 1 cap PO QPM cholecalciferol (vitamin D3) [Vitamin D3] 1,000 unit Capsule 1,000 unit PO DAILY glimepiride 2 mg tablet 2 mg PO DAILY celecoxib [Celebrex] 200 mg capsule 200 mg PO DAILY Qty: 90 2RF gabapentin 300 mg capsule 600 mg PO TID acetaminophen 500 mg capsule 1,000 mg PO .qd PRN Referrals: Rut Monsalve MD [Physician] - Jessica Laboy PA-C [Primary Care Provider] -
--- NOTE | 2022-01-13 00:10 | DI.CT.S_ITS ---
PROCEDURE: CT KIDNEY URETER BLADDER (KUB) INDICATIONS: hematuria TECHNIQUE: Axial sections were acquired from the lung bases to the pubic symphysis. Coronal and sagittal reformats were performed. For radiation dose reduction, the following was used: automated exposure control, adjustment of mA and/or kV according to patient size. COMPARISON: None. FINDINGS: Image quality: Excellent. Lung bases: There is atelectasis and scarring in the lung bases. In the left lower lobe, there is a peripheral pulmonary nodule measuring up to 0.6 cm on series 3, image 6. A smaller 0.3 cm nodule is also demonstrated in the left lower lobe on series 3, image 2. In the Heart: Heart is normal in size. URINARY: Right Kidney and Ureter: No hydronephrosis. There is a suspected punctate nonobstructing right renal stone. No hydroureter. Left Kidney and Ureter: No stones or hydronephrosis. There is an exophytic hyperdense oval lesion extending posteriorly from the inferior pole of the left kidney measuring up to 1.7 cm suggestive of a hemorrhagic cyst. A smaller exophytic cyst is also demonstrated in the superior pole. No hydroureter. Bladder: Normal wall thickness. No stones. ABDOMEN: Liver: Noncontrast evaluation of the liver demonstrates a lobulated cyst medially in the right hepatic lobe. Gallbladder: Within normal limits without calcified gallstones. Biliary ducts: No biliary ductal dilatation. Pancreas: Unremarkable. Spleen: Normal in size. Adrenal Glands: No adrenal nodules. Stomach and Bowel: Stomach, small bowel loops, and colon are normal in caliber and wall thickness. The appendix is not discretely visualized and likely surgically absent. No pericecal inflammatory changes. There is colonic diverticulosis without acute diverticulitis. Peritoneum: No abnormal intraperitoneal fluid. No free air. Ventral Wall: No hernia. Abdominal Nodes: No retroperitoneal or mesenteric adenopathy by size criteria. Vessels: Aorta and inferior vena cava are normal in size. PELVIS: Pelvic Organs: Unremarkable. Pelvic Nodes: No enlarged lymph nodes. Miscellaneous: No inguinal hernias identified. Bones: Visualized osseous structures demonstrate no suspicious focal lesions. IMPRESSION: 1. No evidence of obstructive uropathy. 2. Suspected punctate nonobstructing right renal stone. 3. Hyperdense exophytic lesion extending posteriorly from the left kidney likely represents a hemorrhagic cyst, but the differential includes a renal mass. Recommend follow-up evaluation with a nonemergent renal ultrasound. Dictated by: Marvel Rodriguez M.D. on 01/13/2022 at 0:40 Approved by: Marvel Rodriguez M.D. on 01/13/2022 at 0:46
[2022-01-13 00:32] LABS: Add Manual Diff / Slide Review NO; Basophils Absolute Auto 0 /uL (0-100); Basophils Percent Auto 0.5 % (0-2); Eosinophils Absolute Auto 200 /uL (0-450); Eosinophils Percent Auto 2.7 % (2-4); Hematocrit 35.9 % (41-53); Hemoglobin 11.8 g/dL (13.5-17.5); Lymphocytes Absolute Auto 1600 /uL (1100-4500); Lymphocytes Percent Auto 23.6 % (25-40); Mean Corpuscular HGB Conc 32.9 % (30-36); Mean Corpuscular Hemoglobin 26.9 PG (26-34); Mean Corpuscular Volume 81.8 fL (80-100); Monocytes Absolute Auto 700 /uL (0-900); Monocytes Percent Auto 10.7 % (3-14); Neutrophils Absolute Auto 4300 /uL (1500-7000); Neutrophils Percent Auto 62.5 % (50-75); Platelet Count 244 X10^3/uL (150-400); Red Blood Cell Count 4.38 X10^6/uL (4.5-5.9); Red Cell Distribution Width 15.1 % (11.6-14.8); White Blood Cell Count 6.9 X10^3/uL (4.5-11.0)
[2022-01-13 01:11] LABS: Alanine Aminotransferase 16 IU/L (<50); Albumin 3.9 g/dL (3.5-5.0); Albumin Globulin Ratio 1.3 (1.0-2.8); Alkaline Phosphatase 48 U/L (38-126); Aspartate Aminotransferase 19 IU/L (17-59); BUN Creatinine Ratio 21.3 (6-22); Bilirubin Total 0.2 mg/dL (0.2-1.3); Blood Urea Nitrogen 26 mg/dL (9-20); Calcium 8.8 mg/dL (8.4-10.2); Carbon Dioxide 25 mmol/L (22-32); Chloride 105 mmol/L (98-107); Estimated Glomerular Filt Rate > 60 mL/min (>60); Globulin 2.9 g/dL (1.7-4.1); Glucose 182 mg/dL (80-110); HEMOLYSIS < 15 (0-50); Potassium 4.2 mmol/L (3.4-5.1); Sodium 139 mmol/L (137-145); Total Protein 6.8 g/dL (6.3-8.2)
[2022-01-13 01:15] VITALS: O2SAT 97
[2022-01-13 01:16] VITALS: BP 149/65; PULSE 75; O2SAT 97
== END 2022-01-13 01:22 | disposition home or self-care (01) ==
PROVIDERS: Emergency Provider Emergency Medicine; PCP Physician Assistant Medical
DX: R31.9 Hematuria, unspecified (principal)
CPT/HCPCS: 36415; 74176; 80053; 81003; 81015; 85025; 87086; 99282; 99284

== ENCOUNTER 2022-06-09 14:52 | Emergency (ER) | payer BC, SELFPAY ==
[2022-06-09 15:00] VITALS: BP 188/81; PULSE 79; RESP 15; TEMP 36.6; O2SAT 95; BMI 35.0
[2022-06-09 17:06] VITALS: BP 182/86; PULSE 73; O2SAT 96
[2022-06-09 18:01] VITALS: BP 173/78; PULSE 68; O2SAT 95
--- NOTE | 2022-06-09 18:35 | ED.UPPEXIN ---
HPI - Extremity Injury (Upper) <Dada Zuleta PA-C - Last Filed: 06/09/22 18:40> General Chief Complaint: Extremity Injury, Upper Stated Complaint: Arm Pain Time Seen by Provider: 06/09/22 17:26 Source: patient Mode of arrival: EMS History of Present Illness HPI narrative: 76-year-old male with diabetes, distant myocardial infarction presents to the ED with 3 days of left-sided upper arm pain. Patient states that he regularly goes to the gym, lifts weight. His pain 1st started after a weightlifting session, progressed to shooting pains from the top of his arm to the elbow. Patient denies numbness, tingling, weakness. Patient is endorsing full range of motion. Patient denies any fevers, chills, chest pain, shortness of breath, lightheadedness, dizziness, syncope. Related Data Home Medications Medication Instructions Recorded Confirmed aspirin 81 mg chewable tablet 81 mg PO DAILY ##0 02/26/08 04/28/21 atorvastatin 80 mg tablet 80 mg PO QPM 10/27/17 04/28/21 cholecalciferol (vitamin D3) 25 1,000 unit PO DAILY 10/27/17 04/28/21 mcg (1,000 unit) capsule (Vitamin D3) fenofibrate 160 mg tablet 160 mg PO DAILY 10/27/17 04/28/21 losartan 50 mg tablet 50 mg PO DAILY 10/27/17 04/28/21 metformin 500 mg tablet 1,000 mg PO QPM 10/27/17 04/28/21 omega-3 360 ww-gwt-imp-fish oil 1 cap PO QPM 10/27/17 04/28/21 1,200 mg capsule,delayed release (Fish Oil) glimepiride 2 mg tablet 2 mg PO DAILY 09/23/20 04/28/21 acetaminophen 500 mg capsule 1,000 mg PO .qd PRN 12/24/21 12/24/21 gabapentin 300 mg capsule 600 mg PO TID 12/24/21 12/24/21 Previous Rx's Medication Instructions Recorded celecoxib 200 mg capsule (Celebrex) 200 mg PO DAILY #90 caps 02/09/22 Allergies Allergy/AdvReac Type Severity Reaction Status Date / Time diphenhydramine Allergy Mild Rash Verified 06/09/22 15:07 [From Benadryl] penicillin G Allergy Mild Rash Verified 06/09/22 15:07 lisinopril AdvReac Severe Cough Verified 06/09/22 15:07 Review of Systems <Dada Zuleta PA-C - Last Filed: 06/09/22 18:40> Review of Systems ROS Unobtainable: All systems reviewed & are unremarkable except as noted in HPI and below Constitutional Constitutional: Denies chills, Denies fatigue, Denies fever(s), Denies frequent falls, Denies lethargy and Denies weakness Eyes Eyes: Denies change in vision, Denies eye discharge, Denies irritation and Denies loss of vision ENT Ears, Nose, Mouth, and Throat: Denies change in voice, Denies dizziness, Denies neck pain, Denies sore throat and Denies throat swelling Cardiovascular Cardiovascular: Denies chest pain, Denies irregular heart rhythm, Denies lightheadedness, Denies palpitations, Denies dyspnea, Denies dyspnea on exertion and Denies orthopnea Respiratory Respiratory: Denies cough, Denies dyspnea, Denies dyspnea on exertion and Denies wheezing Gastrointestinal Gastrointestinal: Denies abdominal pain, Denies change in bowel habits, Denies diarrhea, Denies nausea and Denies vomiting Genitourinary Genitourinary: Denies hematuria, Denies flank pain, Denies urinary incontinence and Denies urinary urgency Musculoskeletal Musculoskeletal: Denies back pain, Denies muscle weakness, Denies neck pain, Denies numbness and Denies tingling Comments: Left-sided upper arm pain Integumentary/Breasts Skin/Breast: Denies pruritus, Denies erythema, Denies rash and Denies wounds Neurologic Neurologic: Denies behavioral changes, Denies confusion, Denies dizziness, Denies frequent falls, Denies loss of vision, Denies numbness, Denies tingling and Denies weakness Psychiatric Psychiatric: Denies anxiety, Denies behavioral changes, Denies confusion, Denies depression, Denies homicidal ideation and Denies suicidal ideation Endocrine Endocrine: Denies fatigue, Denies flushing and Denies palpitations Hematologic/Lymphatic Hematologic/Lymphatic: Denies easy bruising Allergic/Immunologic Allergic/Immunologic: Denies urticaria, Denies throat swelling and Denies wheezing Patient History <Dada Zuleta PA-C - Last Filed: 06/09/22 18:40> Medical History Cervical spondylosis Degenerative joint disease of right hip Diabetes DJD (degenerative joint disease), thoracic Facet arthropathy, lumbar Herniated nucleus pulposus, L4-5 High cholesterol Lumbar radiculopathy Morbid obesity due to excess calories Myocardial infarct Surgical History History of cataract removal with insertion of prosthetic lens Stented coronary artery Family History Sister Cancer Social History Smoking Status: Never smoker Smoking Status: Never smoker alcohol intake frequency: other Substance Use Type: does not use Exam <Dada Zuleta PA-C - Last Filed: 06/09/22 18:40> Narrative Exam Narrative: Const General:?cooperative, healthy appearing and comfortable HENNJ Head:?normal to inspection Ears:?hearing grossly normal bilaterally Nose:?external nose normal Face and sinus:?normal facial exam and sinuses nontender Mouth:?oral mucosae normal Throat:?posterior oropharynx normal Eyes General:?appearance normal, both eyes and all related structures Neck Neck:?normal visual inspection and no lymphadenopathy noted Resp Effort & Inspection:?normal respiratory effort Auscultation:?clear to auscultation bilaterally Cardio Rate:?regular rate Rhythm:?regular rhythm Musculoskeletal No deformities, swelling, erythema, tenderness to palpation. Full range of motion of arm. Strength and sensation intact. Patient is neurovascularly intact. Neuro General:?patient alert, patient awake and patient oriented x3 Initial Vital Signs Initial Vital Signs: Vital Signs Temperature 97.9 F 06/09/22 15:00 Pulse Rate 79 06/09/22 15:00 Respiratory Rate 15 06/09/22 15:00 Blood Pressure 188/81 H 06/09/22 15:00 Pulse Oximetry 95 06/09/22 15:00 Oxygen Delivery Method 06/09/22 15:00 <Lazaro Randle MD - Last Filed: 06/15/22 08:32> Initial Vital Signs Initial Vital Signs: Vital Signs Temperature 97.9 F 06/09/22 15:00 Pulse Rate 79 06/09/22 15:00 Respiratory Rate 15 06/09/22 15:00 Blood Pressure 188/81 H 06/09/22 15:00 Pulse Oximetry 95 06/09/22 15:00 Oxygen Delivery Method 06/09/22 15:00 Course <Dada Zuleta PA-C - Last Filed: 06/09/22 18:40> Vital Signs Vital signs: Vital Signs - 8 hr 06/09/22 15:00 06/09/22 17:06 06/09/22 18:01 Temperature 97.9 F Pulse Rate 79 73 68 Respiratory Rate 15 Blood Pressure 188/81 H 182/86 H 173/78 H Pulse Oximetry 95 96 95 Oxygen Delivery Method Room Air Room Air Room Air <Lazaro Randle MD - Last Filed: 06/15/22 08:32> Vital Signs Vital signs: Vital Signs - 8 hr 06/09/22 15:00 06/09/22 17:06 06/09/22 18:01 Temperature 97.9 F Pulse Rate 79 73 68 Respiratory Rate 15 Blood Pressure 188/81 H 182/86 H 173/78 H Pulse Oximetry 95 96 95 Oxygen Delivery Method Room Air Room Air Room Air MDM - Extremity Injury (Upper) <Dada Zuleta PA-C - Last Filed: 06/09/22 18:40> MDM Narrative Medical decision making narrative: 76-year-old male with diabetes, distant myocardial infarction presents to the ED with 3 days of left-sided upper arm pain. Physical exam was reassuring for no read deformities, tenderness to palpation. Patient has full range of motion of the left arm. There is no erythema or swelling. Patient's symptoms likely due to musculoskeletal sprain/strain. Recommend ice for the 1st 24 hours followed by heat. Also recommend elevation of the arm, ibuprofen, Tylenol. Recommend follow-up with PCP in 3-5 days. ED return precautions were discussed with patient. Patient verbalized understanding. Discharge Plan Departure Patient Disposition: Home Clinical Impression: Arm pain Instructions: DI for Arm Pain Activity Restrictions/Additional Instructions: You were evaluated in the ED today for left-sided upper arm pain. Your physical exam and history are reassuring. Your symptoms are likely due to a musculoskeletal sprain/strain. You may ice the area for the 1st 24 hours for 10 minutes at a time every 1-2 hours. After that you may apply heat packs. You may also take Tylenol, ibuprofen for the pain, raise the arm above heart level. Please follow-up with your PCP in 3 days. Return to the ED if your symptoms worsen, you experience numbness, tingling, weakness, chest pain, shortness of breath. Prescriptions: No Action aspirin 81 mg Tablet,Chewable 81 mg PO DAILY Qty: 0 celecoxib [Celebrex] 200 mg capsule 200 mg PO DAILY Qty: 90 2RF losartan 50 mg tablet 50 mg PO DAILY metformin 500 mg tablet 1,000 mg PO QPM Label Comments: do not take 10/26 or have lab done 10/27 atorvastatin 80 mg Tablet 80 mg PO QPM Label Comments: patient states does not have this medication (was on simvastatin) fenofibrate 160 mg tablet 160 mg PO DAILY Label Comments: takes all meds in the evening omega 2-uij-toq-fish oil [Fish Oil] 360-1,200 mg Capsule,Delayed Release(Dr/Ec) 1 cap PO QPM cholecalciferol (vitamin D3) [Vitamin D3] 1,000 unit Capsule 1,000 unit PO DAILY glimepiride 2 mg tablet 2 mg PO DAILY gabapentin 300 mg capsule 600 mg PO TID acetaminophen 500 mg capsule 1,000 mg PO .qd PRN Referrals: Jessica Laboy PA-C [Primary Care Provider] - Visit Report Forms: Patient Portal/API <Lazaro Randle MD - Last Filed: 06/15/22 08:32> Cosign ED Attending Cosbernadetteature Attestation: I was immediately available in the department for consultation. ?This documentation has been reviewed and I agree with assessment and plan. Supervised by Lazaro Randle MD
== END 2022-06-09 18:44 | disposition home or self-care (01) ==
PROVIDERS: Emergency Provider Student in an Organized Health Care Education/Training Program; PCP Physician Assistant Medical
DX: M79.602 Pain in left arm (principal); Z79.899 Other long term (current) drug therapy
CPT/HCPCS: 99281

== ENCOUNTER 2023-04-13 14:32 | Emergency (ER) | payer BC, SELFPAY ==
[2023-04-13 14:49] VITALS: BP 180/86; PULSE 80; RESP 16; TEMP 36.9; O2SAT 96; BMI 34.9
--- NOTE | 2023-04-13 15:07 | DI.RAD.S_ITS ---
PROCEDURE: XR HIP W PEL IF DONE RT 2V INDICATIONS: atraumatic right hip pain TECHNIQUE: AP pelvis with lateral view(s) of the right hip(s). COMPARISON: [facility], , XR HIP W PEL IF DONE [place] 3TO4V, 12/09/2020, 14:30. FINDINGS: Bones: No fractures or dislocations. Pelvic ring appears intact. No suspicious bony lesions. Right total hip arthroplasty appears normally aligned, without hardware complication. Soft tissues: The visualized bowel gas pattern is normal. No suspicious soft tissue calcifications. IMPRESSION: Right total hip arthroplasty, without hardware complication. Dictated by: Jose Phillips M.D. on 04/13/2023 at 15:42 Approved by: Jose Phillips M.D. on 04/13/2023 at 15:42
--- NOTE | 2023-04-13 16:32 | PC.NURSE ---
Pt reports that he had on old injury to hip, no new injury, pt reports pain increases with movement of the right leg, seen by PT today and was told that is most likely muscle pain not bone pain, pt takes daily non narc pain meds.
[2023-04-13 17:56] VITALS: BP 188/86; PULSE 73; RESP 18; TEMP 36.7; O2SAT 98
--- NOTE | 2023-04-13 18:08 | ED.EXTPRO ---
HPI - Extremity Problem <Dada Zuleta PA-C - Last Filed: 04/13/23 18:52> General Chief complaint: Extremity Problem,Nontraumatic Stated complaint: RT leg pain/HX hip replacment Time Seen by Provider: 04/13/23 15:21 Source: patient Mode of arrival: Ambulatory History of Present Illness HPI Narrative: 77-year-old male with past medical history degenerative disc disease, degenerative disease of the right hip, status post right hip replacement surgery in August 2022 presents to the ED with right-sided hip and upper leg pain. No new trauma. Patient goes to physical therapy weekly. Patient states that upon awakening this morning he felt a sharp pain going down the side of his hip to his upper leg. Patient was seen at physical therapy earlier this morning, evaluated and diagnosed with a musculoskeletal sprain/strain. Patient came to the ED to confirm that there were no other issues. Patient denies numbness, tingling, weakness. Patient is able to bear weight and walk with his walking stick. Related Data Home Medications Medication Instructions Recorded Confirmed aspirin 81 mg chewable tablet 81 mg PO DAILY ##0 02/26/08 04/28/21 atorvastatin 80 mg tablet 80 mg PO QPM 10/27/17 04/28/21 cholecalciferol (vitamin D3) 25 1,000 unit PO DAILY 10/27/17 04/28/21 mcg (1,000 unit) capsule (Vitamin D3) fenofibrate 160 mg tablet 160 mg PO DAILY 10/27/17 04/28/21 losartan 50 mg tablet 50 mg PO DAILY 10/27/17 04/28/21 metformin 500 mg tablet 1,000 mg PO QPM 10/27/17 04/28/21 omega-3 360 ob-yqt-ewj-fish oil 1 cap PO QPM 10/27/17 04/28/21 1,200 mg capsule,delayed release (Fish Oil) glimepiride 2 mg tablet 2 mg PO DAILY 09/23/20 04/28/21 acetaminophen 500 mg capsule 1,000 mg PO .qd PRN 12/24/21 12/24/21 gabapentin 300 mg capsule 600 mg PO TID 12/24/21 12/24/21 Previous Rx's Medication Instructions Recorded celecoxib 200 mg capsule (Celebrex) 200 mg PO DAILY #90 caps 12/04/22 cyclobenzaprine 10 mg tablet 10 mg PO TID PRN muscle spasm #20 04/13/23 tabs Allergies Allergy/AdvReac Type Severity Reaction Status Date / Time diphenhydramine Allergy Mild Rash Verified 06/09/22 15:07 [From Benadryl] penicillin G Allergy Mild Rash Verified 06/09/22 15:07 lisinopril AdvReac Severe Cough Verified 06/09/22 15:07 Review of Systems <Dada Zuleta PA-C - Last Filed: 04/13/23 18:52> Constitutional Constitutional: Denies chills, Denies fatigue, Denies fever(s), Denies frequent falls, Denies lethargy and Denies weakness Eyes Eyes: Denies change in vision, Denies eye discharge, Denies irritation and Denies loss of vision ENT Ears, Nose, Mouth, and Throat: Denies change in voice, Denies dizziness, Denies neck pain, Denies sore throat and Denies throat swelling Cardiovascular Cardiovascular: Denies chest pain, Denies irregular heart rhythm, Denies lightheadedness, Denies palpitations, Denies dyspnea, Denies dyspnea on exertion and Denies orthopnea Respiratory Respiratory: Denies cough, Denies dyspnea, Denies dyspnea on exertion and Denies wheezing Gastrointestinal Gastrointestinal: Denies abdominal pain, Denies change in bowel habits, Denies diarrhea, Denies nausea and Denies vomiting Musculoskeletal Musculoskeletal: Denies neck pain and Denies numbness Integumentary/Breasts Skin/Breast: Denies pruritus, Denies erythema, Denies rash and Denies wounds Neurologic Neurologic: Denies behavioral changes, Denies confusion, Denies dizziness, Denies frequent falls, Denies loss of vision, Denies numbness and Denies weakness Psychiatric Psychiatric: Denies anxiety, Denies behavioral changes, Denies confusion, Denies depression, Denies homicidal ideation and Denies suicidal ideation Endocrine Endocrine: Denies fatigue, Denies flushing and Denies palpitations Hematologic/Lymphatic Hematologic/Lymphatic: Denies easy bruising Allergic/Immunologic Allergic/Immunologic: Denies urticaria, Denies throat swelling and Denies wheezing Patient History <Dada Zuleta PA-C - Last Filed: 04/13/23 18:52> Medical History Facet arthropathy, lumbar Cervical spondylosis DJD (degenerative joint disease), 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 Morbid obesity due to excess calories Lumbar radiculopathy Herniated nucleus pulposus, L4-5 Diabetes High cholesterol Myocardial infarct Surgical History History of cataract removal with insertion of prosthetic lens Stented coronary artery Family History Sister Cancer Social History Smoking Status: Never smoker Smoking Status: Never smoker alcohol intake frequency: other Substance Use Type: does not use Exam <Dada Zuleta PA-C - Last Filed: 04/13/23 18:52> Narrative Exam Narrative: Const General:?cooperative, healthy appearing and comfortable HENMT Head:?normal to inspection Ears:?hearing grossly normal bilaterally Nose:?external nose normal Face and sinus:?normal facial exam and sinuses nontender Mouth:?oral mucosae normal Throat:?posterior oropharynx normal Eyes General:?appearance normal, both eyes and all related structures Neck Neck:?normal visual inspection and no lymphadenopathy noted Resp Effort & Inspection:?normal respiratory effort Auscultation:?clear to auscultation bilaterally Cardio Rate:?regular rate Rhythm:?regular rhythm Musculoskeletal No bony tenderness to palpation. Gait is normal with walker. Strength and sensation intact. Patient is neurovascularly intact. Neuro General:?patient alert, patient awake and patient oriented x3 Initial Vital Signs Initial Vital Signs: Vital Signs Temperature 98.5 F 04/13/23 14:49 Pulse Rate 80 04/13/23 14:49 Respiratory Rate 16 04/13/23 14:49 Blood Pressure 180/86 H 04/13/23 14:49 Pulse Oximetry 96 04/13/23 14:49 Oxygen Delivery Method Room Air 04/13/23 14:49 <Karis Villarreal MD - Last Filed: 04/14/23 07:24> Initial Vital Signs Initial Vital Signs: Vital Signs Temperature 98.5 F 04/13/23 14:49 Pulse Rate 80 04/13/23 14:49 Respiratory Rate 16 04/13/23 14:49 Blood Pressure 180/86 H 04/13/23 14:49 Pulse Oximetry 96 04/13/23 14:49 Oxygen Delivery Method Room Air 04/13/23 14:49 Course <Dada Zuleta PA-C - Last Filed: 04/13/23 18:52> Orders Ordered: ED Orders 04/13/23 15:07 XR hip w pel if done RT 2V Stat Vital Signs Vital signs: Vital Signs - 8 hr 04/13/23 14:49 04/13/23 17:56 Temperature 98.5 F 98.1 F Pulse Rate 80 73 Respiratory Rate 16 18 Blood Pressure 180/86 H 188/86 H Pulse Oximetry 96 98 Oxygen Delivery Method Room Air Room Air <Karis Villarreal MD - Last Filed: 04/14/23 07:24> Orders Ordered: ED Orders 04/13/23 15:07 XR hip w pel if done RT 2V Stat Vital Signs Vital signs: Vital Signs - 8 hr 04/13/23 14:49 04/13/23 17:56 Temperature 98.5 F 98.1 F Pulse Rate 80 73 Respiratory Rate 16 18 Blood Pressure 180/86 H 188/86 H Pulse Oximetry 96 98 Oxygen Delivery Method Room Air Room Air MDM - Extremity (Nontraumatic) <Dada Zuleta PA-C - Last Filed: 04/13/23 18:52> MDM Narrative Medical decision making narrative: 77-year-old male with past medical history degenerative disc disease, degenerative disease of the right hip, status post right hip replacement surgery in August 2022 presents to the ED with right-sided hip and upper leg pain. History and physical exam most consistent with a musculoskeletal sprain/strain. Recommend heat packs, lidocaine patches, Tylenol, muscle relaxants. Recommend follow-up with PCP for further evaluation. ED return precautions discussed with patient. Patient verbalized understanding. Medical records reviewed: Yes Discharge Plan Departure Patient Disposition: Home Clinical Impression: Hip pain Qualifiers: Laterality: right Qualified Code(s): M25.551 - Pain in right hip Instructions: DI for Hip Pain Activity Restrictions/Additional Instructions: You were evaluated in the ED today for right-sided hip and leg pain. It appears that your pain is due to a musculoskeletal sprain/strain. You may apply wafd-bxr-dfsrmvz lidocaine patches, apply heat packs, continue to take Tylenol. You may also take muscle relaxants that are being prescribed for you. Please follow-up with your PCP as soon as possible. Return to the ED if you experience worsening symptoms, numbness, tingling, weakness. Prescriptions: New cyclobenzaprine 10 mg tablet 10 mg PO TID PRN (Reason: muscle spasm) Qty: 20 0RF No Action aspirin 81 mg Tablet,Chewable 81 mg PO DAILY Qty: 0 celecoxib [Celebrex] 200 mg capsule 200 mg PO DAILY Qty: 90 2RF losartan 50 mg tablet 50 mg PO DAILY metformin 500 mg tablet 1,000 mg PO QPM Patient Comments: do not take 10/26 or have lab done 10/27 atorvastatin 80 mg Tablet 80 mg PO QPM Patient Comments: patient states does not have this medication (was on simvastatin) fenofibrate 160 mg tablet 160 mg PO DAILY Patient Comments: takes all meds in the evening omega 6-sru-ckn-fish oil [Fish Oil] 360-1,200 mg Capsule,Delayed Release(Dr/Ec) 1 cap PO QPM cholecalciferol (vitamin D3) [Vitamin D3] 1,000 unit Capsule 1,000 unit PO DAILY glimepiride 2 mg tablet 2 mg PO DAILY gabapentin 300 mg capsule 600 mg PO TID acetaminophen 500 mg capsule 1,000 mg PO .qd PRN Referrals: Jessica Laboy PA-C [Primary Care Provider] - Stand Alone Forms: Patient Portal/API ED Sign-out <Karis Villarreal MD - Last Filed: 04/14/23 07:24> Cosign ED Attending Cosignature Attestation: I did not see this patient. I was available all times for consultation.
== END 2023-04-13 18:03 | disposition home or self-care (01) ==
PROVIDERS: Emergency Provider Student in an Organized Health Care Education/Training Program; PCP Physician Assistant Medical
DX: M25.551 Pain in right hip (principal)
CPT/HCPCS: 73502; 99283